=== PATIENT | female | born 1950 | race Caucasian/White ===

== ENCOUNTER → 2019-04-19 | Outpatient (CLI) | payer MEDICARE, OTHER ==
[~2019-04-19] VITALS: Ht 152.4 cm; Wt 69.9 kg
[~2019-04-19] MED LIST: CATHETER FLUSH 10 ML SYR IV PRN
== END ==
LOC: CARD 12:20
PROVIDERS: ATTEND Internal Medicine Cardiovascular Disease
DX: I10 Essential (primary) hypertension (principal); E78.2 Mixed hyperlipidemia; E11.9 Type 2 diabetes mellitus without complications; Z83.3 Family history of diabetes mellitus
CPT/HCPCS: 93306

== ENCOUNTER 2022-07-13 11:21 | Emergency (ER) | payer MEDICARE, OTHER ==
[~2022-07-13] VITALS: Ht 154 cm; Wt 70.0 kg
[2022-07-13 11:42] VITALS: BP 141/75
--- NOTE | 2022-07-13 11:47 | ED General ---
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 She ran out on Wednesday appropriately. She went to [facility] to get her refill, and they were out. They said to come back Wednesday, but they are closed due to the holiday. She is having abdominal cramping, body pain, and anxiety. Denies any chest pain, SOA, n/v/d, weakness, numbness, or any other concerns. Allergies and Home Medications Allergies Coded Allergies: No Known Drug Allergies (Unverified , 04/19/19) Patient Home Medication List Home Medication List Reviewed: Yes Review of Systems Review of Systems Constitutional: No fever EENTM: No blurred vision Respiratory: no symptoms reported Cardiovascular: no symptoms reported Gastrointestinal: no symptoms reported Genitourinary: no symptoms reported Musculoskeletal: see HPI Skin: no symptoms reported Psychiatric/Neurological: See HPI Hematologic/Lymphatic: No Symptoms Reported Immunological/Allergic: no symptoms reported All Other Systems Reviewed Negative Unless Noted: Yes Past Vekuijy-Mfwzty-Ajcdxb Hx Patient Social History Tobacco Use?: No Past Medical History Surgeries: No Physical Exam Vital Signs Capillary Refill : Height, Weight, BMI Height: 5'0.00" Weight: 154lbs. 0.0oz. [id number]; 30.1 BMI Method: General Appearance: No Apparent Distress, WD/WN HEENT: PERRL/EOMI, Normal ENT Inspection, Pharynx Normal Neck: Full Range of Motion, Normal Inspection, Non Tender, Supple Respiratory: Chest Non Tender, Lungs Clear, Normal Breath Sounds, No Accessory Muscle Use, No Respiratory Distress Cardiovascular: Regular Rate, Rhythm, No Edema, Normal Peripheral Pulses Gastrointestinal: Normal Bowel Sounds, Non Tender, Soft; No Distended, No Guarding Back: Normal Inspection Extremity: Normal Capillary Refill, Normal Inspection, Normal Range of Motion, Non Tender, No Calf Tenderness, No Pedal Edema Neurologic/Psychiatric: Alert, No Motor/Sensory Deficits, Normal Mood/Affect Skin: Normal Color, Warm/Dry Lymphatic: No Adenopathy Progress/Results/Core Measures Suspected Sepsis SIRS Temperature: Pulse: Respiratory Rate: Blood Pressure / Mean: Results/Orders Vital Signs/I&O Capillary Refill : Progress Note : Progress Note 72yoF with above history coming in because she ran out of Methadone and her pharmacy is closed. ABCs intact and VSS on presentation. Per [facility] the patient is appropriately out of the medication. [facility] is the only pharmacy open, discussed with the patient I would be willing to send a one days supply to get her through to tomorrow to fill her regular script. Departure Impression Primary Impression: Opioid withdrawal Disposition: HOME, SELF-CARE Condition: Stable Departure-Patient Inst. Decision time for Depature: 12:00 Referrals: KEN DURAND DO (PCP) Primary Care Physician Patient Instructions: Drug Withdrawal ED Add. Discharge Instructions: 1 day of pills were sent to the [facility] here in [place]. Be sure to let Dr. Durand's office know that you did this and said they do not break your pain contract. Scripts Methadone HCl (Methadone HCl) 10 Mg Tablet 10 MG PO TID for 1 Day, #3 TAB Prov: PASQUALE CHANEY MD 07/13/22 PASQUALE CHANEY MD Jul 13, 2022 11:47
[2022-07-13] MEDS ORDERED: METH-742 PO (11:49)
== END 2022-07-13 14:27 | disposition home or self-care (01) ==
LOC: EDUNIT# 11:21 → ER FS 11:23
DX: F11.23 Opioid dependence with withdrawal (principal)
CPT/HCPCS: 99281

== ENCOUNTER → 2022-07-20 | Outpatient (CLI) | payer MEDICARE, OTHER ==
[~2022-07-20] MED LIST changes: -CATHETER FLUSH 10 ML SYR IV PRN; +METH-742 PO
--- NOTE | 2022-07-20 14:02 | Diagnostic Imaging Report ---
PROCEDURE: CT abdomen and pelvis without contrast. TECHNIQUE: Multiple contiguous axial images were obtained through the abdomen and pelvis without the use of intravenous contrast. Auto Exposure Controls were utilized during the CT exam to meet ALARA standards for radiation dose reduction. INDICATION: Intermittent right upper quadrant abdominal pain with abdominal distention. Bilateral breast implants are noted. There are several low-density foci within the liver parenchyma which measure up to approximately 1.3 cm in diameter which may represent cysts. In addition, there is extensive extrahepatic biliary ductal dilatation with the common bile duct reaching 2 cm in diameter. Gallbladder is surgically absent. There is no evidence of pancreatic lesion or inflammation. No adrenal gland or focal splenic lesion is seen. There are hyperdense nodules within the kidneys bilaterally measuring up to approximately 1.5 cm in size. These could represent hemorrhagic cyst. There is no evidence of biliary ductal dilatation. There is thinning of the anterior abdominal wall. There is distention of the stomach with gas and fluid. There is also gaseous distention of the transverse colon and ascending colon. No focal inflammation is identified. Incompletely distended and unopacified urinary bladder is unremarkable in appearance. There is no evidence of focal inflammation or organized fluid collection. There is rather advanced L5-S1 degenerative disc disease. IMPRESSION: There are several incidental findings including probable hepatic cyst and probable hemorrhagic renal cyst. Note is made of hepatic biliary ductal dilatation which may partly be related to reservoir effect postcholecystectomy although clinical correlation with laboratory values may be of use. Otherwise, no acute abnormality is seen. Dictated by: Dictated on workstation # [id number]
== END ==
LOC: RAD FS 12:57
PROVIDERS: ATTEND Nurse Practitioner Family
DX: R10.11 Right upper quadrant pain (principal); R14.0 Abdominal distension (gaseous); N18.32 Chronic kidney disease, stage 3b; R16.0 Hepatomegaly, not elsewhere classified
CPT/HCPCS: 74176

== ENCOUNTER → 2023-05-12 | Outpatient (CLI) | payer MEDICARE, OTHER ==
--- NOTE | 2023-05-12 11:38 | Diagnostic Imaging Report ---
PROCEDURE: US Renal/Bladder. TECHNIQUE: Multiple real-time grayscale images were obtained over the kidneys in various projections bilaterally. INDICATION: Hypertension. Evaluate for renal artery stenosis. COMPARISON: 07/20/2022. FINDINGS: Right: The right kidney measures 9.8 cm in length. Renal cortical thickness and echogenicity are within normal limits. A benign-appearing cyst is seen in the inferior pole of the right kidney measuring 1.4 cm. There is no evidence of calculi, solid focal mass or hydronephrosis. No perinephric fluid collections are identified. The peak systolic velocity within the right renal artery measures 108 cm/s. The right renal artery to aorta ratio is 0.46. The resistive indices within the arcuate arteries range from 0.69-0.80. Left: The left kidney measures 9.1 cm in length. Renal cortical thickness and echogenicity are within normal limits. Small benign-appearing cyst is seen in the superior pole of the left kidney measuring 0.7 cm. There is a possible vascular lesion in the mid left kidney measuring 2.5 x 2.6 cm. There is no evidence of calculi or hydronephrosis. No perinephric fluid collections are identified. The peak systolic velocity within the left renal artery is 182 cm/s. The left renal artery to aorta ratio is 0.78. The resistive indices within the arcuate arteries on the left range from 0.70-0.78. The peak systolic velocity within the abdominal aorta measures 233 cm/s. There is no abdominal ascites. IMPRESSION: 1. No sonographic evidence of renal artery stenosis. 2. Possible solid vascular lesion in the mid left kidney. Recommend contrast enhanced CT or MRI of the abdomen to further characterize. 3. Peak systolic velocity of 233 cm/s within the abdominal aorta. Findings are consistent with the patient's history of hypertension and close follow-up is recommended. Dictated by: Dictated on workstation # [id number]
== END ==
LOC: RAD 09:24
PROVIDERS: ATTEND Internal Medicine Nephrology
DX: I12.9 Hypertensive chronic kidney disease with stage 1 through stage 4 chronic kidney disease, or unspecified chronic kidney disease (principal); N18.31 Chronic kidney disease, stage 3a
CPT/HCPCS: 76770; 93975

== ENCOUNTER 2023-06-19 11:56 | Emergency (ER) | payer MEDICARE, OTHER ==
[~2023-06-19] VITALS: Ht 152 cm; Wt 68.0 kg
--- NOTE | 2023-06-19 12:08 | ED General ---
General Stated Complaint: LT ARM/BACK PAIN/SOB History of Present Illness Date Seen by Provider: Jun 19, 2023 Time Seen by Provider: 12:05 Initial Comments 73-year-old female is here with complaints of right upper back pain in the area right below her right scapula which is radiating to her right shoulder. Patient states that the pain is 7/10. 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 Patient denies chest pain, shortness of breath, palpitations, injuries, falls, fever and chills, trauma. Patient states that she has come to the ER because her daughter urged her to come and get it checked out. Patient is sitting comfortably in the bed without any apparent signs of distress. Vitals are stable. Allergies and Home Medications Allergies Coded Allergies: No Known Drug Allergies (Unverified , 04/19/19) Patient Home Medication List Home Medication List Reviewed: Yes Methadone HCl (Methadone HCl) 10 Mg Tablet, 10 MG PO TID Prescribed by: PASQUALE CHANEY on 07/13/22 1149 Review of Systems Review of Systems Constitutional: no symptoms reported EENTM: no symptoms reported Respiratory: no symptoms reported Cardiovascular: no symptoms reported Gastrointestinal: no symptoms reported Genitourinary: no symptoms reported Musculoskeletal: back pain Skin: no symptoms reported Psychiatric/Neurological: No Symptoms Reported Hematologic/Lymphatic: No Symptoms Reported Immunological/Allergic: no symptoms reported Past Dxkdckp-Dydygk-Mxeelu Hx Past Medical History Surgeries: No Physical Exam Vital Signs Vital Signs - First Documented 06/19/23 12:14 Temp 36.3 Pulse 73 Resp 16 B/P (MAP) 169/59 (95) Pulse Ox 95 O2 Delivery Room Air O2 Flow Rate 95.00 Capillary Refill : Height, Weight, BMI Height: 5'0.00" Weight: 154lbs. 0.0oz. [id number]; 29.00 BMI Method: General Appearance: No Apparent Distress, WD/WN HEENT: PERRL/EOMI, Moist Mucous Membranes Neck: Full Range of Motion, Normal Inspection, Non Tender, Supple Respiratory: Chest Non Tender, Lungs Clear, Normal Breath Sounds, No Accessory Muscle Use Cardiovascular: Regular Rate, Rhythm, No Edema Back: Normal Inspection, No Vertebral Tenderness, Muscle Spasm (right paraspinal muscle spasm of the right thoracic area unferior to scapula. No shoulder tenderness. ROM unrestricted in right extremity. NV bundle intact.) Extremity: Normal Inspection, Normal Range of Motion, Non Tender Neurologic/Psychiatric: Alert, Oriented x3, No Motor/Sensory Deficits, Normal Mood/Affect Skin: Normal Color Progress/Results/Core Measures Suspected Sepsis SIRS Temperature: Pulse: Respiratory Rate: Blood Pressure / Mean: Results/Orders My Orders Orders - ARIELA LEARY MD Continuous Ekg Monitoring (06/19/23 12:08) Ekg Tracing (06/19/23 12:08) Ketorolac Injection (Ketorolac Injection (06/19/23 12:45) Medications Given in ED Current Medications Medications Dose Ordered Sig/Sung Route Start Time Stop Time Status Last Admin Dose Admin Ketorolac Tromethamine 30 mg ONCE ONCE IM 06/19/23 12:45 06/19/23 12:46 06/19/23 12:36 30 MG Vital Signs/I&O 06/19/23 12:14 Temp 36.3 Pulse 73 Resp 16 B/P (MAP) 169/59 (95) Pulse Ox 95 O2 Delivery Room Air O2 Flow Rate 95.00 Capillary Refill : Progress Note : Progress Note 1. RIGHT THORACIC PARASPINAL MUSCLE SPASM: - EKG: NSR, non-ischemic - Pt does not have any chest pain at any time, and vitals are stable in the ER with a nonischemic EKG -Patient refuses x-rays and states that she does not need it. -Toradol injection given in the ER. Patient feels better. -Follow-up with PCP within the next 3 to 7 days -Advised Lidoderm patch, which is [id number] -The patient was seen in the ED, and treated appropriately to presentation at a specific point in time. Patient is informed that there is a possibility that disease and illness can evolve and change in acuity rapidly or slowly after patient is discharged from the ER. Precautionary advice given to the patient for immediate return to ER if symptoms worsen or do not resolve, and to seek emergency care sooner rather than later. Pt also advised on the importance of PCP follow up and compliance with management and follow up plan with PCP and/or specialist, as this is part of the management plan. Pt verbally expressed understanding. Departure Impression Primary Impression: Paraspinal muscle spasm Disposition: 01 HOME, SELF-CARE Condition: Stable Departure-Patient Inst. Referrals: KEN DURAND DO (PCP/Family) Primary Care Physician Patient Instructions: Muscle Spasms (DC) Add. Discharge Instructions: -Follow-up with PCP within the next 3 to 7 days -Advised Lidoderm patch, which is [id number] ARIELA LEARY MD Jun 19, 2023 12:07
[2023-06-19 12:14] VITALS: BP 169/59
[2023-06-19] MEDS ORDERED: KETOROLAC INJ 30 MG/ML VIAL IM ONE (12:45)
== END 2023-06-19 13:08 | disposition home or self-care (01) ==
LOC: EDUNIT# 11:56 → ER FS 11:58
DX: M62.830 Muscle spasm of back (principal)
CPT/HCPCS: 93005

== ENCOUNTER → 2023-07-22 | Outpatient (CLI) | payer MEDICARE, OTHER | LOC: CARD 08:37 | PROVIDERS: ATTEND Physician Assistant | DX: I11.9 Hypertensive heart disease without heart failure (principal); I34.0 Nonrheumatic mitral (valve) insufficiency; I25.10 Atherosclerotic heart disease of native coronary artery without angina pectoris | CPT/HCPCS: 93306 ==

== ENCOUNTER → 2023-08-23 | Outpatient (CLI) | payer MEDICARE, OTHER ==
[~2023-08-23] MED LIST changes: +CATHETER FLUSH 10 ML SYR IVP PRN; +REGADENOSON 0.4 MG/5 ML SYR IV ONE
[2023-08-23 09:50] VITALS: BP 147/64
--- NOTE | 2023-08-23 12:10 | Cardiology Stress Test Report ---
Stress Test Report Date of Procedure/Referring: Date of Procedure: Aug 23, 2023 PCP Dudley Dodge DO Admitting Physician Admitting Physician: Attending Physician: Ivania Fernandez Baseline Heart Rate: 61 Baseline Blood Pressure: Blood Pressure Systolic: 147 Blood Pressure Diastolic: 64 Baseline Vitals Vital Signs Date Time Temp Pulse Resp B/P (MAP) Pulse Ox O2 Delivery O2 Flow Rate FiO2 08/23/23 09:50 61 147/64 (91) Baseline EKG: Baseline EKG: NSR Summary After explaining the procedure to the patient, she signed a consent and then brought to the stress nuclear laboratory. Patient received 0.4 mg Lexiscan for stress test, ECG, heart rate and blood pressure were monitored continuously. Resting and stress dose of radio tracer were injected, imaging was acquired and reviewed in short axis, horizontal long axis and vertical long axis views. TID: 1.11 SSS: 5 SDS: 5 EF: 75 Patient tolerated Lexiscan well Breast attenuation with mild decrease uptake involving the anterior wall probably due to breast attenuation, overall there is no significant ischemia or infarction on SPECT images Normal left ventricular size, ejection fraction 75% Copy Copies To 1: DUDLEY DODGE BASHAR J MD Aug 23, 2023 12:10
== END ==
LOC: CARD 07:49
PROVIDERS: ATTEND Physician Assistant
DX: I10 Essential (primary) hypertension (principal); I25.10 Atherosclerotic heart disease of native coronary artery without angina pectoris
CPT/HCPCS: 78452; 93017; A9502